=== PATIENT | male | born 1960 | race African-American/Black ===

== ENCOUNTER 2016-09-24 09:58 | Emergency (ER) | payer OTHER ==
[~2016-09-24] VITALS: Ht 188 cm; Wt 115.0 kg
[2016-09-24 10:53] LABS: HEMATOCRIT 42.7 % (38.0-50.0); MCH 31.1 PG (29.0-34.0); MCHC 33.3 G/DL (30.0-36.0); MCV 93.4 FL (86-99); MEAN PLAT.VOLUME 10.5 uM^3 (9.0-12.4); PLATELET COUNT 213 K/uL (156-360); RBC DIS.WIDTH-CV 12.1 % (11.8-14.6); RBC DIS.WIDTH-SD 41.9 % (39-53); RED BLOOD COUNT 4.57 M/uL (4.00-5.50); WHITE BLOOD COUNT 6.4 K/uL (4.1-10.2)
[2016-09-24 11:01] LABS: CHLORIDE 105 mEq/L (99-109); POTASSIUM 4.1 mEq/L (3.7-5.4); SODIUM 139 mEq/L (136-147)
[2016-09-24 11:03] LABS: GLUCOSE 110 mg/dL (70-99)
[2016-09-24 11:04] LABS: ANION GAP 7 MEQ/L (2-14)
[2016-09-24 11:07] LABS: GFR ESTIMATE (CALCULATED) > 59 mL/min/
[2016-09-24 11:08] LABS: UREA NITROGEN (BUN) 9 mg/dL (9-23)
[2016-09-24] MEDS ORDERED: LEVAQUIN750 MG PO (12:24)
[2016-09-24] MEDS ORDERED: VENTOLIN HFA18 GM IH (12:24)
[2016-09-24] MEDS ORDERED: PREDNISONE20 MG PO (12:24)
[2016-09-24 13:07] VITALS: BP 127/97
== END 2016-09-24 13:08 | disposition home or self-care (01) ==
LOC: EME 09:58
PROVIDERS: Physician Assistant
DX: J44.0 Chronic obstructive pulmonary disease with (acute) lower respiratory infection (principal); J18.9 Pneumonia, unspecified organism; J44.1 Chronic obstructive pulmonary disease with (acute) exacerbation; Z87.891 Personal history of nicotine dependence; B19.20 Unspecified viral hepatitis C without hepatic coma; Z88.0 Allergy status to penicillin
CPT/HCPCS: 71020; 80048; 85027; 93005; 94640; 94640 76; 99281; 99285; J2930; J7030

== ENCOUNTER 2016-09-26 17:28 | Emergency (ER) | payer OTHER ==
[~2016-09-26] VITALS: Ht 188 cm; Wt 116.6 kg
[~2016-09-26 17:28] MED LIST: LEVAQUIN750 MG PO; PREDNISONE20 MG PO; VENTOLIN HFA18 GM IH
[2016-09-26] MEDS ORDERED: DOXYCYCLINE HY100 MG PO (20:31)
[2016-09-26] MEDS ORDERED: CEPHALEXIN500 MG PO (20:40)
[2016-09-26 20:46] VITALS: BP 121/80
== END 2016-09-26 20:46 | disposition home or self-care (01) ==
LOC: EME 17:28
DX: J18.9 Pneumonia, unspecified organism (principal); J45.901 Unspecified asthma with (acute) exacerbation; Z87.891 Personal history of nicotine dependence
CPT/HCPCS: 94640; 99281; 99283

== ENCOUNTER 2017-01-22 21:14 | Inpatient (IN) | payer OTHER ==
[~2017-01-22] VITALS: Ht 188 cm; Wt 117.4 kg
[~2017-01-22 21:14] MED LIST changes: +CEPHALEXIN500 MG PO; +DOXYCYCLINE HY100 MG PO
[2017-01-22 21:57] LABS: MCH 31.1 PG (29.0-34.0); MCHC 33.3 G/DL (30.0-36.0); MCV 93.5 FL (86-99); MEAN PLAT.VOLUME 11.1 uM^3 (9.0-12.4); PLATELET COUNT 179 K/uL (156-360); RBC DIS.WIDTH-SD 44.7 % (39-53); WHITE BLOOD COUNT 8.5 K/uL (4.1-10.2)
[2017-01-22 22:07] LABS: CHLORIDE 107 mEq/L (99-109); POTASSIUM 3.4 mEq/L (3.7-5.4); SODIUM 141 mEq/L (136-147)
[2017-01-22 22:09] LABS: GLUCOSE 100 mg/dL (70-99)
[2017-01-22 22:10] LABS: ANION GAP 9 MEQ/L (2-14)
[2017-01-22 22:13] LABS: GFR ESTIMATE (CALCULATED) > 59 mL/min/; UREA NITROGEN (BUN) 10 mg/dL (9-23)
[2017-01-23] MEDS ORDERED: HYDROCHLOROTHIA25 MG PO (01:19)
[2017-01-23] MEDS ORDERED: DESYREL100 MG PO (01:20)
[2017-01-23] MEDS ORDERED: SYMBICORT60 INHALAT IH (01:21)
[2017-01-23] MEDS ORDERED: ENALAPRIL MALEA20 MG PO (01:23)
[2017-01-23] MEDS ORDERED: AMLODIPINE BESY10 MG PO (01:24)
[2017-01-23] MEDS ORDERED: OMEPRAZOLE20 MG PO (01:25)
[2017-01-23 02:01] VITALS: BP 140/90
[2017-01-23 04:00] VITALS: BP 144/85
[2017-01-23 07:34] VITALS: BP 141/91
[2017-01-23 15:50] VITALS: BP 142/90
[2017-01-24 08:20] VITALS: BP 135/80
[2017-01-24 16:13] VITALS: BP 134/78
[2017-01-25 00:04] VITALS: BP 124/58
[2017-01-25 06:55] LABS: EOSINOPHIL (%) 0 % (0-5); HEMATOCRIT 40.7 % (38.0-50.0); IMMATURE GRANULOCYTE (%) 0.8 % (0.0-0.7); IMMATURE GRANULOCYTE COUNT 0.1 K/uL; INSTRUMENT ABS NEUTROPHIL CT 13.9 K/uL; LYMPHOCYTE COUNT 1.4 K/uL (1.0-2.8); MCHC 32.2 G/DL (30.0-36.0); MCV 96.2 FL (86-99); MEAN PLAT.VOLUME 11.4 uM^3 (9.0-12.4); MONOCYTE (%) 6.2 % (3-12); NEUTROPHIL (%) 84.2 % (45-76); NEUTROPHIL COUNT 13.9 K/uL (1.8-6.4); PLATELET COUNT 188 K/uL (156-360); RED BLOOD COUNT 4.23 M/uL (4.00-5.50); WHITE BLOOD COUNT 16.5 K/uL (4.1-10.2)
[2017-01-25 07:26] LABS: ANION GAP 8 MEQ/L (2-14); CHLORIDE 104 MEQ/L (99-109); GFR ESTIMATE (CALCULATED) > 59 mL/min/; GLUCOSE 141 mg/dL (70-99); SAMPLE HEMOLYSIS CHECK 0; SAMPLE ICTERIC CHECK 0; SAMPLE LIPEMIA CHECK 0; SODIUM 137 MEQ/L (136-147); UREA NITROGEN (BUN) 17 mg/dL (9-23)
[2017-01-25 07:32] LABS: POTASSIUM 4.3 MEQ/L (3.7-5.4)
[2017-01-25 07:50] VITALS: BP 130/90
[2017-01-25] MEDS ORDERED: ENALAPRIL MALEA20 MG PO (16:13)
[2017-01-25] MEDS ORDERED: TYLENOL REGULA325 MG PO (16:13)
[2017-01-25] MEDS ORDERED: K-DUR20 MEQ PO (16:14)
[2017-01-25] MEDS ORDERED: MEDROL DOSEPAK4 MG PO (16:15)
[2017-01-25] MEDS ORDERED: ROBITUSSIN NIG237 ML PO (16:16)
[2017-01-25 16:42] VITALS: BP 128/86
== END 2017-01-25 18:17 | disposition home or self-care (01) | DRG 190 ==
LOC: EME 21:14 → 5EAST 01-23 00:03 → EDOF 01-23 00:03 → ENRESERV 01-23 00:04 → 5EAST 01-23 01:19
PROVIDERS: Family Medicine Sports Medicine
DX: J44.0 Chronic obstructive pulmonary disease with (acute) lower respiratory infection (principal); J18.9 Pneumonia, unspecified organism; J20.9 Acute bronchitis, unspecified; J96.91 Respiratory failure, unspecified with hypoxia; J44.1 Chronic obstructive pulmonary disease with (acute) exacerbation; M19.90 Unspecified osteoarthritis, unspecified site; F17.200 Nicotine dependence, unspecified, uncomplicated; K21.9 Gastro-esophageal reflux disease without esophagitis; I10 Essential (primary) hypertension; F41.1 Generalized anxiety disorder; F10.21 Alcohol dependence, in remission; F11.21 Opioid dependence, in remission; B19.20 Unspecified viral hepatitis C without hepatic coma; E87.6 Hypokalemia; Z87.01 Personal history of pneumonia (recurrent); Z68.33 Body mass index [BMI] 33.0-33.9, adult; Z79.51 Long term (current) use of inhaled steroids; Z79.899 Other long term (current) drug therapy; Z96.653 Presence of artificial knee joint, bilateral
CPT/HCPCS: 71020; 80048; 85025; 85027; 87070; 87077; 87186; 87205; 90686; 94640; 94640 76; 94760; 94799; 99202; 99281; 99285; J1650; J2930

== ENCOUNTER 2017-05-02 10:14 | Emergency (ER) | payer OTHER ==
[~2017-05-02] VITALS: Ht 188 cm; Wt 121.9 kg
[~2017-05-02 10:14] MED LIST changes: +AMLODIPINE BESY10 MG PO; +DESYREL100 MG PO; +ENALAPRIL MALEA20 MG PO; +HYDROCHLOROTHIA25 MG PO; +K-DUR20 MEQ PO; +MEDROL DOSEPAK4 MG PO; +OMEPRAZOLE20 MG PO; +ROBITUSSIN NIG237 ML PO; +SYMBICORT60 INHALAT IH; +TYLENOL REGULA325 MG PO
[2017-05-02 11:07] LABS: HEMATOCRIT 42.4 % (38.0-50.0); HEMOGLOBIN 14.2 G/DL (12.5-16.6); MCH 31.9 PG (29.0-34.0); MCHC 33.5 G/DL (30.0-36.0); MCV 95.3 FL (86-99); PLATELET COUNT 157 K/uL (156-360); RBC DIS.WIDTH-CV 12.8 % (11.8-14.6); RBC DIS.WIDTH-SD 44.8 % (39-53); RED BLOOD COUNT 4.45 M/uL (4.00-5.50); WHITE BLOOD COUNT 4.5 K/uL (4.1-10.2)
[2017-05-02 11:16] LABS: CHLORIDE 106 mEq/L (99-109); SODIUM 141 mEq/L (136-147)
[2017-05-02 11:17] LABS: GLUCOSE 83 mg/dL (70-99)
[2017-05-02 11:21] LABS: CREATININE 1.1 mg/dL (0.6-1.3); GFR ESTIMATE (CALCULATED) > 59 mL/min/ (58.99-99999)
[2017-05-02 11:22] LABS: UREA NITROGEN (BUN) 12 mg/dL (9-23)
[2017-05-02] MEDS ORDERED: ZITHROMAX Z-PA250 MG PO (13:03)
[2017-05-02] MEDS ORDERED: DELTASONE20 M1 PO (13:03)
[2017-05-02 14:30] VITALS: BP 130/79
== END 2017-05-02 14:31 | disposition home or self-care (01) ==
LOC: EME 10:14
DX: J44.0 Chronic obstructive pulmonary disease with (acute) lower respiratory infection (principal); J20.9 Acute bronchitis, unspecified; J45.901 Unspecified asthma with (acute) exacerbation; B19.20 Unspecified viral hepatitis C without hepatic coma; K21.9 Gastro-esophageal reflux disease without esophagitis; I10 Essential (primary) hypertension; F32.9 Major depressive disorder, single episode, unspecified; F10.10 Alcohol abuse, uncomplicated; J44.9 Chronic obstructive pulmonary disease, unspecified; Z88.2 Allergy status to sulfonamides; Z88.0 Allergy status to penicillin; F17.200 Nicotine dependence, unspecified, uncomplicated
CPT/HCPCS: 71046; 80048; 85027; 94640; 94640 76; 99281; 99284

== ENCOUNTER 2017-10-13 08:41 | Emergency (ER) | payer OTHER ==
[~2017-10-13] VITALS: Ht 188 cm; Wt 111.0 kg
[~2017-10-13 08:41] MED LIST changes: +DELTASONE20 M1 PO; +ZITHROMAX Z-PA250 MG PO
[2017-10-13 09:31] LABS: BASOPHIL (%) 0.3 % (0-1); EOSINOPHIL (%) 12.6 % (0-5); EOSINOPHIL COUNT 0.7 K/uL (0-0.3); HEMATOCRIT 40.5 % (38.0-50.0); HEMOGLOBIN 13.9 G/DL (12.5-16.6); IMMATURE GRANULOCYTE (%) 0.2 % (0.0-0.7); LYMPHOCYTE (%) 37.1 % (15-42); LYMPHOCYTE COUNT 2.2 K/uL (1.0-2.8); MCH 30.7 PG (29.0-34.0); MCHC 34.3 G/DL (30.0-36.0); MCV 89.4 FL (86-99); MONOCYTE (%) 11.2 % (3-12); MONOCYTE COUNT 0.7 K/uL (0-0.8); NEUTROPHIL (%) 38.6 % (45-76); NEUTROPHIL COUNT 2.3 K/uL (1.8-6.4); PLATELET COUNT 184 K/uL (156-360); RBC DIS.WIDTH-CV 13.2 % (11.8-14.6); RBC DIS.WIDTH-SD 43.5 % (39-53); RED BLOOD COUNT 4.53 M/uL (4.00-5.50); WHITE BLOOD COUNT 5.9 K/uL (4.1-10.2)
[2017-10-13 09:37] LABS: INTER. NORMALIZED RATIO 1.2
[2017-10-13 09:40] LABS: CHLORIDE 105 mEq/L (99-109); POTASSIUM 3.8 mEq/L (3.7-5.4); SODIUM 136 mEq/L (136-147)
[2017-10-13 09:42] LABS: GLUCOSE 168 mg/dL (70-99)
[2017-10-13 09:46] LABS: CREATININE 1.1 mg/dL (0.6-1.3); GFR ESTIMATE (CALCULATED) > 59 mL/min/ (58.99-99999); UREA NITROGEN (BUN) 16 mg/dL (9-23)
[2017-10-13 09:51] LABS: TROP-I INTERPRETATION NEGATIVE; TROPONIN-I < 0.01 ng/mL (0.0-0.30)
[2017-10-13] MEDS ORDERED: PREDNISONE20 MG PO (10:56)
[2017-10-13 11:17] VITALS: BP 106/85
== END 2017-10-13 11:18 | disposition home or self-care (01) ==
LOC: EME 08:41
PROVIDERS: Emergency Medicine
DX: J44.1 Chronic obstructive pulmonary disease with (acute) exacerbation (principal); F17.200 Nicotine dependence, unspecified, uncomplicated; I10 Essential (primary) hypertension; F32.9 Major depressive disorder, single episode, unspecified; K21.9 Gastro-esophageal reflux disease without esophagitis; B19.20 Unspecified viral hepatitis C without hepatic coma; Z96.653 Presence of artificial knee joint, bilateral; Z88.2 Allergy status to sulfonamides; Z88.0 Allergy status to penicillin
CPT/HCPCS: 71046; 80048; 84484; 85025; 85379; 85610; 93005; 94640; 99281; 99285; J2930